=== PATIENT | male | born 1980 | race Caucasian/White ===

== ENCOUNTER 2018-04-21 14:08 | Observation (INO) | payer SELFPAY ==
[~2018-04-21] VITALS: Ht 177.8 cm; Wt 70.1 kg
[2018-04-21] MEDS ORDERED: ISOVUE-370 76% 100ML VIAL (Q9967) As Ordered ONE (14:42)
[2018-04-21 15:00] LABS: HEMATOCRIT 38.9 % (42.0-52.0); HEMOGLOBIN 13.2 g/dl (13.5-17.5); MEAN CORPUSCULAR HEMOGLOBIN 29.5 pg (27.0-33.0); MEAN CORPUSCULAR HGB CONC 33.9 g/dl (32.0-36.5); PLATELET COUNT, AUTOMATED 257 10^3/uL (150-450); RED BLOOD COUNT 4.47 10^6/uL (4.30-6.10); WHITE BLOOD COUNT 17.5 10^3/uL (4.0-10.0)
[2018-04-21 15:13] LABS: ALBUMIN 4.3 GM/DL (3.2-5.2); ALT/SGPT 26 U/L (12-78); BILIRUBIN,DIRECT 0.1 MG/DL (0.0-0.2); BILIRUBIN,TOTAL 0.4 MG/DL (0.2-1.0); BLOOD UREA NITROGEN 17 MG/DL (7-18); CARBON DIOXIDE LEVEL 29 MEQ/L (21-32); CHLORIDE LEVEL 100 MEQ/L (98-107); CREATININE FOR GFR 0.93 MG/DL (0.70-1.30); GLOMERULAR FILTRATION RATE > 60.0 (>60); GLUCOSE, FASTING 132 MG/DL (70-100); LIPASE 90 U/L (73-393); POTASSIUM SERUM 3.8 MEQ/L (3.5-5.1); SODIUM LEVEL 138 MEQ/L (136-145); TOTAL PROTEIN 8.1 GM/DL (6.4-8.2)
--- NOTE | 2018-04-21 15:47 | REP ---
CT of the chest with IV contrast: There are no comparison studies. There is no pneumothorax, hemothorax or pulmonary contusion. Lung paul are clear. There is no mediastinal hematoma. The thoracic aorta is unremarkable. Cardiac size is normal. Heart is otherwise unremarkable. There are fractures of the right fourth, fifth and sixth ribs anteriorly. No fractures are identified in the visualized portions of the clavicles and scapula. There is no sternal fracture. No vertebral body fractures. Impression: Fractures of the right fourth, fifth and sixth ribs anteriorly. No other fractures. No mediastinal hematoma. The thoracic aorta is unremarkable. No pneumothorax, hemothorax or pulmonary contusion. Electronically Signed by Chris Cervantes MD 04/21/2018 03:38 P
--- NOTE | 2018-04-21 15:51 | REP ---
CT of the abdomen pelvis with IV contrast: There are no comparisons. There is no pneumoperitoneum or hemoperitoneum. The liver, gallbladder, pancreas, spleen, adrenals, kidneys and abdominal aorta are unremarkable. The bowel and mesentery are unremarkable. Pelvis: The bladder and pelvic bowel loops are unremarkable. There are no lumbar body compression deformities. The transverse processes and posterior elements are unremarkable. There is no sacral fracture. The iliac wings are unremarkable. There is no hip fracture. No ratio fracture. Impression: No evidence of solid organ injury. No pneumoperitoneum or hemoperitoneum. No fracture. Electronically Signed by Chris Cervantes MD 04/21/2018 03:41 P
[2018-04-21] MEDS ORDERED: PERCOCET 5MG/325MG TAB PO PRN (17:15)
--- NOTE | 2018-04-21 17:24 | HPEPDOC ---
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 He was trying to pull out a fallen tree with his horses when the tree got pulled towards him and he was sandwiched in betwen two tree trunks hitting him on the right chest. He denies any shortness of breath, or loss of consciousness. He was aided coming back to the farm on aided by an 11 year old boy ( a couple of miles walking, he said) and subsequently brought here in the ED. in the ED was evaluated and was found to have multiple anterior rib fractures on the right but otherwise no other associated injuries found. The ER he reports he is comfortable sitting up if he is not moving. He is not able to move his arm due to the amount of discomfort that causes him. He denies any numbness on the arms is able to use his hand wit hout any limitations. He denies any associated abdominal pain, nausea and bloating ALLERGIES: Please see below. HOME MEDICATIONS: Please see below. PAST MEDICAL HISTORY: none PAST SURGICAL HISTORY: none PERSONAL/SOCIAL HISTORY: Denies smoking, alcohol use, or recreational drug use. REVIEW OF SYSTEMS: GENERAL: Patient is generally healthy and was in his usual state of health prior to the accident. Aside from the chest pain he denies any other ongoing complaints. HEENT: Denies blurred vision and double vision. Denies ear symptoms. Denies hoarseness. NECK: Denies any neck pain. CARDIOVASCULAR: Denies chest pain and palpitations. MUSCULOSKELETAL: Denies arthralgias, back pain and thrombophlebitis. SKIN: Denies rash. NEUROLOGIC: Denies headache, stroke and transient ischemic attack. PSYCHIATRIC: Denies anxiety and depression. ENDOCRINE: Denies thyroid disease. HEMATOLOGY/ONCOLOGY: Denies any bleeding or clotting disorder. HEART: Denies any chest pains, palpitations, paroxysmal dyspnea, orthopnea. PULMONARY: Denies chronic cough, dyspnea and wheezing. GASTROINTESTINAL: Denies rectal bleeding, family history of colon cancer, constipation, diarrhea, dysphagia, heartburn and jaundice. GENITOURINARY: Denies dysuria, frequency, hematuria and nocturia. ENDOCRINE: Denies polydipsia, polyphagia, polyuria, heat or cold intolerance. INFECTIOUS: Denies any recent upper respiratory tract infection, UTI, need for use of antibiotics. NUTRITION: Reports good appetite. PHYSICAL EXAMINATION: VITAL SIGNS: Please see below. GENERAL APPEARANCE: Patient seen at bedside, appears comfortable. Awake, alert, oriented. HEENT: Normocephalic, atraumatic. [place] palpebral conjunctivae. Anicteric sclerae. Lips moist. CHEST: No chest wall abnormalities. Normal respiratory motion/effort. NECK: Supple. No thyromegaly. No lymphadenopathies. LUNGS: Lung sounds are clear to auscultation bilaterally. No wheezing appreciated. No chest wall contusion or abnormality. Tender to palpation around mid chest towards the clavicle on the right side. Nontender on the left side. 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 HEART: No chest wall abnormalities. Heart rate and rhythm are regular with no murmurs. ABDOMEN: Abdomen is obese, soft, slightly rounded. No hepatosplenomegaly. No umbilical or groin herniations, nondistended. No noticeable rebound or guarding. No grimacing with palpation. No rebound tenderness. No masses appreciated. SKIN: Warm, moist. EXTREMITIES: Extremities have no deformities. No edema identified. NEUROLOGICAL: GCS 15. Awake, alert, oriented ANCILLARIES: . LABORATORY DATA: Please see below. MICROBIOLOGY: Please see below. IMAGING: CT Chest There is no pneumothorax, hemothorax or pulmonary contusion. Lung paul are clear. There is no mediastinal hematoma. The thoracic aorta is unremarkable. Cardiac size is normal. Heart is otherwise unremarkable. There are fractures of the right fourth, fifth and sixth ribs anteriorly. No fractures are identified in the visualized portions of the clavicles and scapula. There is no sternal fracture. No vertebral body fractures. CT abdomen and pelvis There is no pneumoperitoneum or hemoperitoneum. The liver, gallbladder, pancreas, spleen, adrenals, kidneys and abdominal aorta are unremarkable. The bowel and mesentery are unremarkable. Pelvis: The bladder and pelvic bowel loops are unremarkable. There are no lumbar body compression deformities. The transverse processes and posterior elements are unremarkable. There is no sacral fracture. The iliac wings are unremarkable. There is no hip fracture. No ratio fracture. IMPRESSION AND PLAN: blunt trauma with multiple anterior rib fractures (right 4,5,6) - no pneumothorax, apparent lung contusion. mediastinal contusion. Plan: admit for observation and pain control deep breathing exercises DVT prophylaxis Vital Signs Vital Signs Date Time Temp Pulse Resp B/P (MAP) Pulse Ox O2 Delivery O2 Flow Rate FiO2 04/21/18 14:18 04/21/18 14:08 97.8 80 16 100 Room Air Laboratory Data Labs 24H Laboratory Tests 2 04/21/18 14:37: Nucleated Red Blood Cells % (auto) 0.0, Anion Gap 9, Glomerular Filtration Rate > 60.0, Calcium Level 9.0, Aspartate Amino Transf (AST/SGOT) 19, Alanine Aminotransferase (ALT/SGPT) 26, Alkaline Phosphatase 60, Total Bilirubin 0.4, Direct Bilirubin 0.1, Total Protein 8.1, Albumin 4.3, Albumin/Globulin Ratio 1.13, Lipase 90 CBC/BMP Laboratory Tests 04/21/18 14:37 Red Blood Count 4.47, Mean Corpuscular Volume 87.0, Mean Corpuscular Hemoglobin 29.5, Mean Corpuscular Hemoglobin Concent 33.9, Red Cell Distribution Width 11.9 Home Medications No Active Prescriptions or Reported Meds Allergies Coded Allergies: No Known Drug Allergy (Verified Allergy, Unknown, 04/21/18) KALEY MEYER MD Apr 21, 2018 17:23
[2018-04-21] MEDS ORDERED: MOM 30ML SUSPENSION UDC PO PRN (17:30)
[2018-04-21] MEDS ORDERED: MORPHINE 4 MG/ML 1ML VIAL/SYRINGE (J2270) IV PRN (17:30)
[2018-04-21] MEDS ORDERED: LR 1,000 ML IV SCH (17:30)
[2018-04-21] MEDS: KETOROLAC 30 MG/ML VIAL (J1885) IV SCH ×2 (17:59→23:32)
[2018-04-21 18:38] VITALS: BP 116/69
[2018-04-21 22:00] VITALS: BP 113/57
[2018-04-22] MEDS: KETOROLAC 30 MG/ML VIAL (J1885) IV SCH ×2 (05:07→12:00)
[2018-04-22 06:00] VITALS: BP 101/68
[2018-04-22 06:23] LABS: BASO % 0.1 % (0.0-1.0); EOS # 0.2 10^3/uL (0.0-0.50); EOS % 1.6 % (0.0-3.0); HEMATOCRIT 41.4 % (42.0-52.0); HEMOGLOBIN 14.1 g/dl (13.5-17.5); LYMPH # 1.7 10^3/uL (1.5-4.5); LYMPH % 18.6 % (24.0-44.0); MEAN CORPUSCULAR HEMOGLOBIN 29.4 pg (27.0-33.0); MEAN CORPUSCULAR HGB CONC 34.1 g/dl (32.0-36.5); MEAN CORPUSCULAR VOLUME 86.4 fl (80.0-96.0); MONO # 0.7 10^3/uL (0.0-0.8); MONO % 7.6 % (0.0-5.0); NEUTROPHILS # 6.6 10^3/uL (1.8-7.7); NEUTROPHILS % 71.7 % (36.0-66.0); PLATELET COUNT, AUTOMATED 259 10^3/uL (150-450); RED BLOOD COUNT 4.79 10^6/uL (4.30-6.10); WHITE BLOOD COUNT 9.3 10^3/uL (4.0-10.0)
[2018-04-22 06:35] LABS: BLOOD UREA NITROGEN 11 MG/DL (7-18); CALCIUM LEVEL 9.3 MG/DL (8.5-10.1); CARBON DIOXIDE LEVEL 25 MEQ/L (21-32); CHLORIDE LEVEL 103 MEQ/L (98-107); CREATININE FOR GFR 0.79 MG/DL (0.70-1.30); GLOMERULAR FILTRATION RATE > 60.0 (>60); GLUCOSE, FASTING 93 MG/DL (70-100); POTASSIUM SERUM 4.2 MEQ/L (3.5-5.1); SODIUM LEVEL 137 MEQ/L (136-145)
[2018-04-22] MEDS ORDERED: ENOXAPARIN 40 MG/0.4 ML SYRINGE (J1650) SC SCH (09:00)
[2018-04-22] MEDS ORDERED: IBUP200T45 PO (10:54)
--- NOTE | 2018-04-22 10:56 | IPNPDOC ---
Subjective General Date/Time Seen The patient was seen on 04/22/18 at 10:55. Subject Chief Complaint/History The patient is a 38-year-old male admitted with a reason for visit of Multiple Closed Fx Of Ribs Right Side. Patient reports he is feeling moderately better. He is able to get himself up out of bed slowly without any help. He denies any shortness of breath. Still has significant pain but tolerable. He is not taking much pain medications. Current Medications Current Medications Current Medications Enoxaparin Sodium (Lovenox) 40 mg DAILY SC ; Start 04/22/18 at 09:00 Home Med (Med Rec Complete!) ASDIRECTED XX ; Start 04/21/18 at 15:45; Stop 04/21/18 at 15:50; Status DC Ketorolac Tromethamine (ToRADol) 30 mg Q6H IV ; Start 04/21/18 at 18:00; Stop at 17:59 Lactated Ringer's 1,000 ml @ 50 mls/hr Q20H IV ; Start 04/21/18 at 17:30; Status Cancel Magnesium Hydroxide (Milk Of Magnesia) 30 ml DAILYPRN PRN PO CONSTIPATION; Start 04/21/18 at 17:30 Morphine Sulfate (Morphine Sulfate Inj) 4 mg Q2HP PRN IV SEVERE PAIN (PS 8-10); Start 04/21/18 at 17:30 Oxycodone/ Acetaminophen (Percocet 5mg/ 325mg Tablet) 2 tab Q4HP PRN PO SEVERE PAIN (PS 8-10); Start 04/21/18 at 17:15 Allergies Coded Allergies: No Known Drug Allergy (Verified Allergy, Unknown, 04/21/18) Objective Physical Examination Examination GENERAL APPEARANCE: Appears comfortable. SKIN: Warm and moist. HEENT: Normocephalic, atraumatic. [place] palpebral conjunctiva, anicteric sclerae. Lips and mucosa appear moist. NECK: Supple, no thyromegaly. No obvious jugular venous distention. LUNGS: Clear to auscultation bilaterally. No wheezing appreciated. HEART: Though not visible chest wall deformities. Moderately tender over the anterior chest wall area. No crepitations.. ABDOMEN: Abdomen is soft, nondistended and nontender, soft, . . EXTREMITIES: Patient is now able to lift his upper arm right about 70-80 degrees. He denies any numbness on his arm. Vital Signs Vital Signs Date Time Temp Pulse Resp B/P (MAP) Pulse Ox O2 Delivery O2 Flow Rate FiO2 04/22/18 06:00 97.9 61 16 101/68 (79) 97 04/21/18 14:08 Room Air I&Os I&O- Last 24 Hours up to 6 AM 04/22/18 06:00 Intake Total 120 ml Output Total 2500 ml Balance -2380 ml Laboratory Data Labs 24H Laboratory Tests 2 04/21/18 14:37: Nucleated Red Blood Cells % (auto) 0.0, Anion Gap 9, Glomerular Filtration Rate > 60.0, Calcium Level 9.0, Aspartate Amino Transf (AST/SGOT) 19, Alanine Aminotransferase (ALT/SGPT) 26, Alkaline Phosphatase 60, Total Bilirubin 0.4, Direct Bilirubin 0.1, Total Protein 8.1, Albumin 4.3, Albumin/Globulin Ratio 1.13, Lipase 90 04/22/18 06:00: Nucleated Red Blood Cells % (auto) 0.0, Anion Gap 9, Glomerular Filtration Rate > 60.0, Calcium Level 9.3, Immature Granulocyte % (Auto) 0.4, White Blood Count 9.3, Red Blood Count 4.79, Hemoglobin 14.1, Hematocrit 41.4L, Mean Corpuscular Volume 86.4, Mean Corpuscular Hemoglobin 29.4, Mean Corpuscular Hemoglobin Concent 34.1, Red Cell Distribution Width 12.1, Platelet Count 259, Neutrophils (%) (Auto) 71.7H, Lymphocytes (%) (Auto) 18.6L, Monocytes (%) (Auto) 7.6H, Eosinophils (%) (Auto) 1.6, Basophils (%) (Auto) 0.1, Neutrophils # (Auto) 6.6, Lymphocytes # (Auto) 1.7, Monocytes # (Auto) 0.7, Eosinophils # (Auto) 0.2, Basophils # (Auto) 0.0, Blood Urea Nitrogen 11, Creatinine 0.79, Sodium Level 137, Potassium Level 4.2, Chloride Level 103, Carbon Dioxide Level 25 CBC/BMP Laboratory Tests 04/21/18 14:37 Red Blood Count 4.47, Mean Corpuscular Volume 87.0, Mean Corpuscular Hemoglobin 29.5, Mean Corpuscular Hemoglobin Concent 33.9, Red Cell Distribution Width 11.9 04/22/18 06:00 Red Blood Count 4.79, Mean Corpuscular Volume 86.4, Mean Corpuscular Hemoglobin 29.4, Mean Corpuscular Hemoglobin Concent 34.1, Red Cell Distribution Width 12.1, Neutrophils (%) (Auto) 71.7 H, Lymphocytes (%) (Auto) 18.6 L, Monocytes ( %) (Auto) 7.6 H, Eosinophils (%) (Auto) 1.6, Basophils (%) (Auto) 0.1, Neutrophils # (Auto) 6.6, Lymphocytes # (Auto) 1.7, Monocytes # (Auto) 0.7, Eosinophils # (Auto) 0.2, Basophils # (Auto) 0.0, Calcium Level 9.3 Impression multiple rib fractures right 4-6, anteriorly doing well able to get himself out of bed by himself, moving arms better OK to go home He would like to take only otc ibuprofen for pain follow up with me in 2 weeks Plan / VTE VTE Prophylaxis Ordered?: Yes KALEY MEYER MD Apr 22, 2018 10:56
--- NOTE | 2018-04-24 12:26 | REP ---
Acute abdominal series three views including PA chest and supine upright abdomen: PA chest: The lung paul are clear. Cardiac size is normal. The marilu, mediastinum, skeletal structures are unremarkable. There is no free subdiaphragmatic air. By CT there are fractures anteriorly of the left fourth fifth and sixth ribs. These fractures are not visible on plain films. Impression: Negative PA chest. Abdomen, supine upright views: On the supine view there is a safety pin superimposed over the pelvis on the left. The bowel gas pattern is normal. There are no other foreign bodies. There are pelvic calcifications, likely phleboliths. There is mild scoliosis convex right at the thoracolumbar junction. Impression: Normal bowel gas pattern. There is a safety pin superimposed over the pelvis. Electronically Signed by Chris Cervantes MD 04/22/2018 08:45 A
== END 2018-04-22 12:18 | disposition home or self-care (01) ==
LOC: M ED 14:08 → M ED INP 14:36 → UNDOADMIN 14:36 → M ED INP 17:15 → M MSPAV 18:25
PROVIDERS: ADMIT Surgery; ATTEND Surgery
DX: S22.41XA Multiple fractures of ribs, right side, initial encounter for closed fracture (principal); W23.0XXA Caught, crushed, jammed, or pinched between moving objects, initial encounter; Y93.H9 Activity, other involving exterior property and land maintenance, building and construction; Y92.007 Garden or yard of unspecified non-institutional (private) residence as the place of occurrence of the external cause; Y99.9 Unspecified external cause status
CPT/HCPCS: 36415; 71260; 74021; 74177; 80048; 80076; 83690; 85025; 85027; 86850; 86900; 86901; 93041; 94760; 99285; Q9967